=== PATIENT | male | born 1950 | race Caucasian/White ===

== ENCOUNTER 2018-03-24 10:27 | Emergency (ER) | payer OTHER ==
[~2018-03-24] VITALS: Ht 170.2 cm; Wt 127.0 kg
[2018-03-24] MEDS ORDERED: ASPIR 8181 M1 PO (10:45)
[2018-03-24] MEDS ORDERED: ALEVE220 MG PO (10:45)
[2018-03-24] MEDS ORDERED: BRILINTA60 MG PO (10:45)
[2018-03-24] MEDS ORDERED: INVOKANA100 MG PO (10:46)
[2018-03-24] MEDS ORDERED: LIPITOR10 MG PO (10:46)
[2018-03-24] MEDS ORDERED: METFORMIN HCL500 MG PO (10:46)
[2018-03-24] MEDS ORDERED: LISINOPRIL2.5 M1 PO (10:46)
[2018-03-24] MEDS ORDERED: CLARITIN10 MG PO (10:46)
[2018-03-24] MEDS ORDERED: FISH OIL 1,001000 M2 PO (10:46)
[2018-03-24] MEDS ORDERED: NASONEX17 GM NASAL (10:47)
[2018-03-24] MEDS ORDERED: UNICOMPLEX M TA1 TA1 PO (10:47)
[2018-03-24] MEDS ORDERED: LOPRESSOR25 PO (10:47)
[2018-03-24] MEDS ORDERED: NITROGLYCERIN0.4 MG SUBLING (10:47)
[2018-03-24 11:59] LABS: INFLUENZA A ANTIGEN None Detected (None Detect); INFLUENZA B ANTIGEN None Detected (None Detect)
[2018-03-24] MEDS ORDERED: VENTOLIN HFA 1818 GM INH (12:18)
[2018-03-24] MEDS ORDERED: BLEPH-105 ML OPHTHALMIC (12:18)
[2018-03-24 12:28] VITALS: BP 117/73
--- NOTE | 2018-03-24 15:45 | EKG ---
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 MCCARTHY : 1950 Requested By: Pilar Stokes Order Number: [id number] MD: Horace Singh Measurements Intervals [place] Rate: 79 P: 63 RI: 137 QRS: 1 QRSD: 99 T: 21 QT: 482 QTc: 553 Interpretive Statements Sinus rhythm Borderline repolarization abnormality Prolonged QT interval No previous ECG available for comparison Electronically Signed On 03-24-2018 15:45:11 CDT by Horace Singh [email or web address] <ELECTRONICALLY SIGNED> By: Horace Singh MD, [facility] 03/24/18 1545 D: [id number] Horace Singh MD, FACC /EPI
== END 2018-03-24 12:29 | disposition home or self-care (01) ==
LOC: M.ERS 10:27
PROVIDERS: Nurse Practitioner Family
DX: B34.9 Viral infection, unspecified (principal); H10.9 Unspecified conjunctivitis; H65.92 Unspecified nonsuppurative otitis media, left ear; E11.9 Type 2 diabetes mellitus without complications